=== PATIENT | female | born 1980 | race Two or more races ===

== ENCOUNTER → 2022-12-30 | Outpatient (CLI) | payer MEDICARE, BC ==
[2022-12-30 20:36] LABS: HEMATOCRIT 28.3 % (36.0-47.0); HEMOGLOBIN 7.6 g/dl (12.0-15.5); MEAN CORPUSCULAR HEMOGLOBIN 18.6 pg (27.0-33.0); MEAN CORPUSCULAR HGB CONC 26.9 g/dl (32.0-36.5); MEAN CORPUSCULAR VOLUME 69.4 fl (80.0-96.0); PLATELET COUNT, AUTOMATED 250 10^3/uL (150-450); RED BLOOD COUNT 4.08 10^6/uL (4.00-5.40); WHITE BLOOD COUNT 7.3 10^3/uL (4.0-10.0)
[2022-12-30 21:01] LABS: HIV 1&2 SCREEN NEGATIVE (NEGATIVE)
[2022-12-30 21:09] LABS: HEPATITIS C VIRUS ABY INDEX 0.15 INDEX (<0.8)
[2022-12-31 13:56] LABS: GC DNA AMPLIFICATION NEGATIVE (NEGATIVE)
== END ==
LOC: M PLALAB 15:18
PROVIDERS: ATTEND Advanced Practice Midwife
DX: Z34.91 Encounter for supervision of normal pregnancy, unspecified, first trimester (principal); Z79.899 Other long term (current) drug therapy

== ENCOUNTER → 2023-01-14 | Outpatient (CLI) | payer BC, MEDICARE ==
[~2023-01-14] VITALS: Ht 157.5 cm; Wt 77.2 kg
[~2023-01-14] MED LIST: ALBUTEROL SULFATE 2.5MG/0.5ML INH NEB SOLN INH PRN; EPINEPHrine INJ 1 MG/ML 1ML AMP IM PRN; FERRIC CARBOXYMALTOSE INJ 750 MG in NS 250 ML (>50kg) IV ONE; NS 1,000 ML IV SCH; diphenhydrAMINE 50MG CAP PO ONE; diphenhydrAMINE 50MG/ML VIAL IV PRN; methylPREDNISolone 125MG 2ML VIAL IV PRN
[2023-01-14 15:07] VITALS: BP 133/59; O2SAT 100
[2023-01-14 16:20] VITALS: BP 118/56; O2SAT 100
== END ==
LOC: M INFU 15:00
PROVIDERS: ATTEND Advanced Practice Midwife
DX: D50.9 Iron deficiency anemia, unspecified (principal)
CPT/HCPCS: 96365; J1439

== ENCOUNTER → 2023-01-20 | Outpatient (REF) | payer MEDICARE, BC | LOC: M SFHCWAGY 17:16 | PROVIDERS: ATTEND Specialist | DX: Z34.92 Encounter for supervision of normal pregnancy, unspecified, second trimester (principal); Z79.899 Other long term (current) drug therapy ==

== ENCOUNTER → 2023-02-05 | Outpatient (CLI) | payer MEDICARE, MEDICAID | LOC: M WHC 09:28 | PROVIDERS: ATTEND Advanced Practice Midwife | DX: O99.332 Smoking (tobacco) complicating pregnancy, second trimester (principal); O34.219 Maternal care for unspecified type scar from previous cesarean delivery; Z3A.19 19 weeks gestation of pregnancy; O41.8X20 Other specified disorders of amniotic fluid and membranes, second trimester, not applicable or unspecified; F17.200 Nicotine dependence, unspecified, uncomplicated ==

== ENCOUNTER → 2023-02-24 | Outpatient (CLI) | payer MEDICARE, MEDICAID | LOC: M WHC 08:57 | PROVIDERS: ATTEND Specialist | DX: Z34.82 Encounter for supervision of other normal pregnancy, second trimester (principal); Z36.2 Encounter for other antenatal screening follow-up; Z3A.21 21 weeks gestation of pregnancy ==

== ENCOUNTER → 2023-04-15 | Outpatient (CLI) | payer MEDICARE, MEDICAID ==
[2023-04-15 17:21] LABS: HEMATOCRIT 34.7 % (36.0-47.0); HEMOGLOBIN 11.3 g/dl (12.0-15.5); MEAN CORPUSCULAR HEMOGLOBIN 28.9 pg (27.0-33.0); MEAN CORPUSCULAR HGB CONC 32.6 g/dl (32.0-36.5); MEAN CORPUSCULAR VOLUME 88.7 fl (80.0-96.0); PLATELET COUNT, AUTOMATED 173 10^3/uL (150-450); RED BLOOD COUNT 3.91 10^6/uL (4.00-5.40); WHITE BLOOD COUNT 6.9 10^3/uL (4.0-10.0)
== END ==
LOC: M PLALAB 11:23
PROVIDERS: ATTEND Advanced Practice Midwife
DX: O34.211 Maternal care for low transverse scar from previous cesarean delivery (principal); Z3A.00 Weeks of gestation of pregnancy not specified

== ENCOUNTER → 2023-05-19 | Outpatient (CLI) | payer MEDICARE, MEDICAID | LOC: M WHC 14:08 | PROVIDERS: ATTEND Obstetrics & Gynecology | DX: O09.523 Supervision of elderly multigravida, third trimester (principal); Z3A.33 33 weeks gestation of pregnancy; O32.2XX0 Maternal care for transverse and oblique lie, not applicable or unspecified ==

== ENCOUNTER → 2023-06-02 | Outpatient (REF) | payer MEDICARE, BC ==
[~2023-06-02] MED LIST changes: -ALBUTEROL SULFATE 2.5MG/0.5ML INH NEB SOLN INH PRN; +COLA100C5 PO; -EPINEPHrine INJ 1 MG/ML 1ML AMP IM PRN; -FERRIC CARBOXYMALTOSE INJ 750 MG in NS 250 ML (>50kg) IV ONE; +IBUP80TA PO; -NS 1,000 ML IV SCH; +PERCOCET PO; -diphenhydrAMINE 50MG CAP PO ONE; -diphenhydrAMINE 50MG/ML VIAL IV PRN; -methylPREDNISolone 125MG 2ML VIAL IV PRN
== END ==
LOC: M SFHCWAGY 16:44
PROVIDERS: ATTEND Obstetrics & Gynecology
DX: Z36.85 Encounter for antenatal screening for Streptococcus B (principal); Z23 Encounter for immunization

== ENCOUNTER → 2023-06-30 | Outpatient (CLI) | payer MEDICARE, MEDICAID ==
[2023-06-30 13:35] LABS: HEMATOCRIT 34.1 % (36.0-47.0); HEMOGLOBIN 10.4 g/dl (12.0-15.5); MEAN CORPUSCULAR HEMOGLOBIN 27.2 pg (27.0-33.0); MEAN CORPUSCULAR HGB CONC 30.5 g/dl (32.0-36.5); MEAN CORPUSCULAR VOLUME 89.3 fl (80.0-96.0); PLATELET COUNT, AUTOMATED 333 10^3/uL (150-450); RED BLOOD COUNT 3.82 10^6/uL (4.00-5.40); WHITE BLOOD COUNT 4.6 10^3/uL (4.0-10.0)
[2023-06-30 13:55] LABS: URIC ACID 3.9 MG/DL (3.1-7.8)
[2023-06-30 13:57] LABS: LDH LACTATE DEHYDROGENASE 264 U/L (120-246)
[2023-06-30 13:58] LABS: ALBUMIN 3.1 G/DL (3.2-5.2); ALKALINE PHOSPHATASE 80 U/L (46-116); ALT/SGPT 41 U/L (7.0-40); AST/SGOT 12 U/L (<34); BILIRUBIN,TOTAL 0.4 MG/DL (0.3-1.2); BLOOD UREA NITROGEN 15 MG/DL (9-23); CALCIUM LEVEL 8.5 MG/DL (8.5-10.1); CARBON DIOXIDE LEVEL 28 MMOL/L (20-31); CHLORIDE LEVEL 110 MMOL/L (98-107); CREATININE FOR GFR 0.72 MG/DL (0.55-1.30); GLOMERULAR FILTRATION RATE > 60.0 (>58); GLUCOSE, FASTING 74 MG/DL (60-100); POTASSIUM SERUM 4.5 MMOL/L (3.5-5.1); SODIUM LEVEL 141 MMOL/L (136-145); TOTAL PROTEIN 6.2 G/DL (5.7-8.2); TOTAL PROTEIN,RANDOM URINE 9.2 MG/DL (0.0-14.0)
[2023-06-30 14:03] LABS: CREATININE,RANDOM URINE 65.8 MG/DL
== END ==
LOC: M PLALAB 11:37
PROVIDERS: ATTEND Obstetrics & Gynecology
DX: O16.5 Unspecified maternal hypertension, complicating the puerperium (principal)

== ENCOUNTER → 2023-10-31 | Day surgery (SDC) | payer MEDICARE, MEDICAID ==
[~2023-10-31] VITALS: Ht 157.5 cm; Wt 84.8 kg
[~2023-10-31] MED LIST changes: +ACETAMINOPHEN 1000MG 100ML IV BAG As Ordered ONE; +LIDOCAINE 2% 100MG/5ML SDV (FOR ANES.) As Ordered ONE; +MIDAZOLAM INJ 2MG/2ML VIAL As Ordered ONE; +ROCURONIUM BROMIDE 50MG/5ML VIAL As Ordered ONE; +fentaNYL 100 MCG/2 ML INJECTION As Ordered ONE; +propofoL 200 MG/20 ML VIAL As Ordered ONE
[2023-10-31 16:58] LABS: HEMATOCRIT 25.3 % (36.0-47.0); HEMOGLOBIN 6.9 g/dl (12.0-15.5); MEAN CORPUSCULAR HGB CONC 27.3 g/dl (32.0-36.5); MEAN CORPUSCULAR VOLUME 69.7 fl (80.0-96.0); PLATELET COUNT, AUTOMATED 192 10^3/uL (150-450); RED BLOOD COUNT 3.63 10^6/uL (4.00-5.40)
[2023-10-31 17:58] LABS: HCG, SERUM QUALITATIVE NEGATIVE (NEGATIVE)
== END | disposition home or self-care (01) ==
LOC: M SDC 15:12
PROVIDERS: ATTEND Obstetrics & Gynecology
DX: Z30.2 Encounter for sterilization (principal); Z53.8 Procedure and treatment not carried out for other reasons